=== PATIENT | female | born 1975 | race African-American/Black ===

== ENCOUNTER 2024-08-26 07:30 | Emergency (ER) | payer MEDICAID ==
[~2024-08-26] VITALS: Ht 170.2 cm; Wt 83.9 kg
[2024-08-26 07:47] VITALS: O2SAT 100
[2024-08-26] MEDS: LORAZEPAM 1MG TABLET PO ONE (09:00)
[2024-08-26] MEDS ORDERED: HYDR-459 MT (10:09)
[2024-08-26 10:19] VITALS: BP 136/84; PULSE 73; RESP 16; TEMP 36.7; O2SAT 100
== END 2024-08-26 10:21 | disposition home or self-care (01) ==
LOC: ER 08:49
DX: F41.9 Anxiety disorder, unspecified (principal)
CPT/HCPCS: 99283